=== PATIENT | female | born 1950 | race Caucasian/White ===

== ENCOUNTER → 2018-09-27 | Outpatient (CLI) | payer OTHER | LOC: M.RAD 09:30 | DX: Z12.31 Encounter for screening mammogram for malignant neoplasm of breast (principal) ==

== ENCOUNTER → 2019-07-30 | Outpatient (CLI) | payer OTHER ==
--- NOTE | 2019-07-30 16:16 | EXE ---
[place] [address] STRESS ECHOCARDIOGRAM Name: HARMEET LEBRON Room: [facility]#: [id number] Admission: 07/30/19 Attend Phys: Kaushik Al, Discharge: Date of : 54 Date of Service: 07/30/19 1615 Report #: [id number] THIS REPORT FOR: //name// APPROVED REPORT Study performed: 07/30/2019 15:03:39 Exam: Stress Echocardiogram Indication: Congestive Heart Failure, Chest pain Patient Location: Out-Patient Stress Nurse: Cady Higginbotham RN Supervising Physician: Reg Pulido MD Ht: 5 ft 5 in HR: 63 bpm BP: 166/97 mmHg Medical History Cardiac Risk Factors: Hyperlipidemia, FHX of CAD Procedure The patient underwent an Exercise Stress Test using the Tyree Protocol. Blood pressure, heart rate, and EKG were monitored. An Echocardiogram was performed by vibration technician in four stages in quad fashion. At peak stress, four selected images were obtained and placed side by side with resting images for comparison. Stress Test Details Stress Test: Exercise stress testing was performed using a Tyree protocol. HR Resting HR: 63 bpm Max Heart Rate (APMHR): 153 bpm Max HR Achieved: 174 bpm Target HR (85% APMHR): 130 bpm % of APMHR: 113 Recovery HR: 77 bpm HR response to stress: Normal HR response to stress BP Resting BP: 166/97 mmHg Max BP: 195/91 mmHg Recovery BP: 151/101 mmHg BP response to stress: Normal blood pressure response to stress. ECG Resting ECG: Sinus Rhythm Stress ECG: Sinus Tachycardia [address] [address] STRESS ECHOCARDIOGRAM Name: HARMEET LEBRON Room: [facility]#: [id number] Admission: 07/30/19 Attend Phys: Kaushki Al, Discharge: Date of : 54 Date of Service: 07/30/19 1615 Report #: [id number] ST Change: Normal Maximum ST Deviation: 0 mm Arrhythmia: APC's Recovery ECG: Sinus Rhythm Recovery ST Change: Normal Recovery ST Deviation: 0 mm Recovery Arrhythmia: None Clinical Reason for Termination: Completed protocol Exercise duration: 3 min 54 sec Highest Stage Achieved: Stage 2: 2.5 mph at 12% grade. Exercise capacity: 5.68 METs Pre-Stress Echo The resting Echocardiogram showed normal left ventricular contractility with an estimated Ejection Fraction of about 60-65%. Post-Stress Echo The stress Echocardiogram showed normal left ventricular contractility with an estimated Ejection Fraction of about >70%. Compared to rest, there were no stress-induced wall motion abnormalities. Conclusion Clinical Response: Non-ischemic Exercise Capacity: Below Average Stress ECG Response: Non-ischemic Stress Echo Images: Non-ischemic low risk stress echo for predicitng future cardiac events Other Information Study Quality: Excellent <Conclusion> low risk stress echo for predicitng future cardiac events <ELECTRONICALLY SIGNED> By: Reg Pulido MD, FACC 07/30/191614 14 14 Reg Pulido MD, FACC /INF
== END ==
LOC: M.CRD 14:28
DX: R07.2 Precordial pain (principal); I50.9 Heart failure, unspecified

== ENCOUNTER → 2020-01-11 | Outpatient (CLI) | payer OTHER | LOC: M.RAD 10:15 | PROVIDERS: ATTEND Internal Medicine | DX: Z12.31 Encounter for screening mammogram for malignant neoplasm of breast (principal) ==

== ENCOUNTER → 2020-12-30 | Outpatient (CLI) | payer OTHER | LOC: M.RAD 09:20 | PROVIDERS: ATTEND Internal Medicine | DX: Z12.31 Encounter for screening mammogram for malignant neoplasm of breast (principal); N64.89 Other specified disorders of breast ==